=== PATIENT | male | born 1950 | race Caucasian/White ===

== ENCOUNTER → 2019-02-28 | Outpatient (REF) | payer MEDICARE ==
[2019-02-28 18:09] LABS: BASO % 0.6 % (0.0-1.0); EOS # 0.2 10^3/uL (0.0-0.5); EOS % 2.7 % (0.0-3.0); HEMATOCRIT 47.5 % (42.0-52.0); HEMOGLOBIN 15.7 g/dl (13.5-17.5); MEAN CORPUSCULAR HEMOGLOBIN 31.2 pg (27.0-33.0); MEAN CORPUSCULAR HGB CONC 33.1 g/dl (32.0-36.5); MEAN CORPUSCULAR VOLUME 94.4 fl (80.0-96.0); MONO # 0.8 10^3/uL (0.0-0.8); MONO % 11.4 % (0.0-5.0); NEUTROPHILS # 4.5 10^3/uL (1.5-8.5); NEUTROPHILS % 68.8 % (36.0-66.0); PLATELET COUNT, AUTOMATED 236 10^3/uL (150-450); RED BLOOD COUNT 5.03 10^6/uL (4.30-6.10); WHITE BLOOD COUNT 6.6 10^3/uL (4.0-10.0)
[2019-02-28 18:35] LABS: C REACTIVE PROTEIN QUANTITATIV < 0.30 MG/DL (0.00-0.30); RHEUMATOID FACTOR QUANT < 10.0 IU/ML (<15.0)
[2019-02-28 19:14] LABS: IMMUNOGLOBULIN E < 3.6 IU/ML (<100)
[2019-02-28 19:28] LABS: ERYTHROCYTE SEDIMENTATION RATE 1 mm/hr (0-20)
== END ==
LOC: M LABDRAW1 17:03
PROVIDERS: ATTEND Internal Medicine Pulmonary Disease
DX: J45.40 Moderate persistent asthma, uncomplicated (principal)

== ENCOUNTER 2019-07-23 06:26 | Day surgery (SDC) | payer MEDICARE ==
[~2019-07-23] VITALS: Ht 172.7 cm; Wt 105.3 kg
[~2019-07-23 06:26] MED LIST: ACID1TAB PO; ALBU83IN INH; ALFU10TA3 PO; AZEL1SPR3 INH; CALC600T5 PO; DUTA1CAP2 PO; DYMI137S; ELIQ5TAB PO; EQL50TAB2 PO; LANS15CA PO; LEVOTAB10 PO; LOSA100T8 PO; LR 1,000 ML IV ONE; NIAC500C PO; PRED10PA PO; RA M200C4 PO; RA M500C PO; RA T500C2 PO; SING5CHW23 PO; SYMB16INH INH; TOPR25TA PO; TRAV04OPD OP; TRUS1SOL OP; VITA-157 PO; VITA500C24 PO; VITAD1000T PO; VYTO10TA22 PO
[2019-07-23] MEDS ORDERED: fentaNYL 100 MCG/2 ML INJECTION (J3010) As Ordered ONE (06:57)
[2019-07-23] MEDS ORDERED: propofoL 200 MG/20 ML VIAL As Ordered ONE (06:58)
[2019-07-23] MEDS ORDERED: LIDOCAINE 2% 100MG/5ML SDV (FOR ANES.) As Ordered ONE (06:58)
[2019-07-23] MEDS ORDERED: ONDANSETRON 4MG/2ML VIAL As Ordered ONE (06:58)
[2019-07-23] MEDS ORDERED: ROCURONIUM BROMIDE 50 MG/5 ML VIAL As Ordered ONE (06:58)
[2019-07-23] MEDS ORDERED: dexameTHASONE 4 MG/ML 1ML VIAL (J1100 PER 1MG) As Ordered ONE (06:58)
[2019-07-23] MEDS ORDERED: MIDAZOLAM INJ 2MG/2ML VIAL (J2250 PER 1MG) As Ordered ONE ×2 (06:58→10:20)
[2019-07-23] MEDS ORDERED: LIDOCAINE 1% MDV 20ML VIAL As Ordered ONE (08:55)
[2019-07-23] MEDS ORDERED: LIDOCAINE VISCOUS 2% SOLN 15ML UDC As Ordered ONE (08:55)
[2019-07-23] MEDS ORDERED: EPINEPHrine 1MG/10ML SYRINGE 1.5IN As Ordered ONE (08:55)
[2019-07-23] MEDS ORDERED: CETACAINE SPRAY 5GM As Ordered ONE (08:55)
[2019-07-23] MEDS ORDERED: THROMBIN SOLN 5,000 UNITS VIAL As Ordered ONE (08:55)
[2019-07-23] MEDS ORDERED: ACETAMINOPHEN 1000MG 100ML IV BTL (OFIRMEV) (J0131 PER 10MG) As Ordered ONE (09:22)
[2019-07-23] MEDS ORDERED: SUGAMMADEX SODIUM 500 MG/5 ML VIAL (BRIDION) As Ordered ONE (09:22)
[2019-07-23] MEDS ORDERED: PHENYLephrine HCL 500 MCG/5 ML (100MCG/ML) SYRINGE (J2370) As Ordered ONE (09:34)
[2019-07-23] MEDS ORDERED: ePHEDrine SULFATE 25 MG/5 ML(5MG/ML) SYRINGE As Ordered ONE (09:34)
[2019-07-23] MEDS ORDERED: ALBUTEROL 6.7GM INHALER **FOR ANES. CART/OMNICELL ONLY As Ordered ONE (09:53)
[2019-07-23] MEDS ORDERED: KETAMINE HCL 200 MG/20 ML VIAL As Ordered ONE (10:19)
[2019-07-23] MEDS ORDERED: LR 1,000 ML IV SCH (11:00)
[2019-07-23] MEDS ORDERED: ONDANSETRON 4MG/2ML VIAL IV PRN ×2 (11:00)
[2019-07-23] MEDS ORDERED: NORCO, ANEXSIA 5/325MG TABLET (HYDROcodone/ACETAMINOPHEN) PO PRN (11:00)
[2019-07-23] MEDS: PERCOCET 5MG/325MG TAB PO PRN ×3 (11:22→20:15)
[2019-07-23] MEDS: fentaNYL 100 MCG/2 ML INJECTION (J3010) IV PRN ×4 (11:23→12:12)
[2019-07-23 11:49] LABS: BASO # 0.1 10^3/uL (0.0-0.2); BASO % 0.5 % (0.0-1.0); EOS # 0.2 10^3/uL (0.0-0.5); EOS % 1.8 % (0.0-3.0); HEMATOCRIT 43.5 % (42.0-52.0); HEMOGLOBIN 14.3 g/dl (13.5-17.5); LYMPH # 0.4 10^3/uL (1.5-5.0); LYMPH % 3.7 % (24.0-44.0); MEAN CORPUSCULAR HEMOGLOBIN 31.3 pg (27.0-33.0); MEAN CORPUSCULAR HGB CONC 32.9 g/dl (32.0-36.5); MEAN CORPUSCULAR VOLUME 95.2 fl (80.0-96.0); MONO # 0.3 10^3/uL (0.0-0.8); MONO % 2.9 % (0.0-5.0); NEUTROPHILS % 90.1 % (36.0-66.0); RED BLOOD COUNT 4.57 10^6/uL (4.30-6.10)
[2019-07-23] MEDS ORDERED: PERCOCET 5MG/325MG TAB PO ONE (12:15)
[2019-07-23 12:32] LABS: BLOOD UREA NITROGEN 17 MG/DL (7-18); CALCIUM LEVEL 8.6 MG/DL (8.8-10.2); CARBON DIOXIDE LEVEL 26 MEQ/L (21-32); CHLORIDE LEVEL 107 MEQ/L (98-107); CREATININE FOR GFR 1.14 MG/DL (0.70-1.30); GLOMERULAR FILTRATION RATE > 60.0 (>42); GLUCOSE, FASTING 113 MG/DL (70-100); POTASSIUM SERUM 4.6 MEQ/L (3.5-5.1); SODIUM LEVEL 140 MEQ/L (136-145)
[2019-07-23 13:00] VITALS: BP 168/83
[2019-07-23 13:30] VITALS: BP 160/80
[2019-07-23] MEDS: LEVALBUTEROL 1.25 MG/0.5 ML CONCENTRATE NEB NEB SCH ×2 (13:43→20:00)
[2019-07-23 14:00] VITALS: BP 173/87
[2019-07-23 14:07] LABS: ABG BASE EXCESS 0.5 (-2.0-2.0); ABG HCO3 26.2 MEQ/L (22.0-26.0); ABG O2 SATURATION 91.4 % (95.0-99.0); ABG PARTIAL PRESSURE CO2 45.7 mmHg (35.0-45.0); ABG PARTIAL PRESSURE O2 63.1 mmHg (75.0-100.0); ABG STANDARD HCO3 24.8 MEQ/L (22.0-26.0); ABG TOTAL CO2 27.6 MEQ/L (23.0-31.0); ABG pH (ARTERIAL) 7.376 UNITS (7.350-7.450)
--- NOTE | 2019-07-23 14:24 | REP ---
REASON: Status post chest tube insertion. The examination is dated 07/23/2019 at 11:10 a.m. and it is compared to 07/23/2019 at 10:36 a.m. A right-sided chest tube is again noted and appears unchanged on this limited portable chest. There is no significant change in the appearance of the lung souza. A small right-sided pneumothorax is noted but significantly better imaged on this exam compared to the prior exam. There are no other significant changes. Electronically Signed by Francisco Javier Gonzalez DO 07/23/2019 02:31 P
[2019-07-23] MEDS ORDERED: SLF 3 ML SYR IV PRN (14:30)
--- NOTE | 2019-07-23 14:31 | REP ---
The examination that I am reading now is 07/23/2019 at 10:36 a.m. is compared to 07/23/2019 10:20 a.m. Since the prior exam, a right-sided thoracotomy tube has been placed. The tip is in the apical region. The pneumothorax seen previously has been reduced and only a small pneumothorax is identifiable. The technique utilized in obtaining the radiograph has magnified the cardiac silhouette and accentuated the interstitial markings. Only the right lung is included on the radiograph. IMPRESSION: Status post chest tube placement with a small right pneumothorax. Electronically Signed by Francisco Javier Gonzalez DO 07/23/2019 02:35 P
--- NOTE | 2019-07-23 14:34 | REP ---
REASON: Post procedural AP supine portable radiograph. COMPARISON: The only prior for comparison is 11/18/2004. The examination being interpreted now is dated 07/23/2019 at 10:20 a.m. The technique utilized in obtaining the radiograph has magnified the cardiac silhouette and accentuated the interstitial markings. Only the right lung field was included on this portable radiograph. There is a moderate to large right-sided pneumothorax. Since not all of the chest was included on the radiograph, I cannot state whether or not this pneumothorax is under tension. IMPRESSION: Right-sided pneumothorax. Electronically Signed by Francisco Javier Gonzalez DO 07/23/2019 02:36 P
[2019-07-23 15:30] VITALS: BP 189/86
[2019-07-23 15:44] LABS: APPEARANCE CLEAR (CLEAR); COLOR COLORLESS (COLORLESS); SOURCE RIGHT LOWER LOBE
[2019-07-23 16:30] VITALS: BP_SYST 175; BP_SYST 189; BP_DIAS 80; BP_DIAS 86
[2019-07-23] MEDS ORDERED: **hydrALAZINE HCL** 25 MG TAB PO ONE (18:15)
[2019-07-23 20:00] VITALS: BP 146/86
[2019-07-23] MEDS: guaiFENesin ER 600 MG TAB PO SCH (20:14)
[2019-07-23] MEDS: SIMVASTATIN 20 MG TAB PO SCH (20:14)
[2019-07-23] MEDS: LATANOPROST 0.005% OPHTH SOLN 2.5 ML OU SCH (20:14)
[2019-07-23] MEDS: DORZOLAMIDE 2% OPHTH SOLN 10 ML BTL OU SCH (20:14)
[2019-07-23] MEDS: SYMBICORT 160/4.5MCG INHALER 6GM INH SCH (20:47)
[2019-07-23] MEDS: SLF 3 ML SYR IV SCH (21:39)
[2019-07-24] VITALS: BP 147/90
[2019-07-24] MEDS: LEVALBUTEROL 1.25 MG/0.5 ML CONCENTRATE NEB NEB SCH ×4 (01:02→18:24)
[2019-07-24] MEDS: PERCOCET 5MG/325MG TAB PO PRN ×4 (01:18→11:49)
[2019-07-24 04:00] VITALS: BP 169/85
[2019-07-24 04:44] LABS: BLOOD UREA NITROGEN 21 MG/DL (7-18); CALCIUM LEVEL 8.4 MG/DL (8.8-10.2); CARBON DIOXIDE LEVEL 28 MEQ/L (21-32); CHLORIDE LEVEL 107 MEQ/L (98-107); GLOMERULAR FILTRATION RATE > 60.0 (>42); GLUCOSE, FASTING 120 MG/DL (70-100); POTASSIUM SERUM 4.3 MEQ/L (3.5-5.1); SODIUM LEVEL 144 MEQ/L (136-145)
[2019-07-24 05:18] LABS: BASO % 0.2 % (0.0-1.0); EOS % 0.3 % (0.0-3.0); HEMATOCRIT 40.8 % (42.0-52.0); HEMOGLOBIN 13.4 g/dl (13.5-17.5); LYMPH # 0.7 10^3/uL (1.5-5.0); LYMPH % 5.6 % (24.0-44.0); MEAN CORPUSCULAR HGB CONC 32.8 g/dl (32.0-36.5); MEAN CORPUSCULAR VOLUME 94.4 fl (80.0-96.0); MONO # 0.7 10^3/uL (0.0-0.8); MONO % 5.7 % (0.0-5.0); NEUTROPHILS # 10.1 10^3/uL (1.5-8.5); NEUTROPHILS % 87.2 % (36.0-66.0); RED BLOOD COUNT 4.32 10^6/uL (4.30-6.10); WHITE BLOOD COUNT 11.6 10^3/uL (4.0-10.0)
[2019-07-24] MEDS: SLF 3 ML SYR IV SCH ×3 (05:40→21:03)
[2019-07-24 08:00] VITALS: BP 117/59
[2019-07-24] MEDS: SYMBICORT 160/4.5MCG INHALER 6GM INH SCH ×2 (08:21→18:24)
--- NOTE | 2019-07-24 08:26 | REP ---
Chest x-ray: Two views. History: Chest tube. Comparison study: July 23, 2019. Findings: A right pleural drainage catheter is seen in place along the right lateral chest wall. The right-sided pneumothorax is no longer visible. Pleural angles are sharp. Cardiomegaly is again observed. The aorta is calcific and tortuous. Pulmonary vasculature is cephalized. Interstitial markings are seen to be increase in the perihilar regions bilaterally. These are most pronounced in the right upper lobe distribution. Electronically Signed by Koby Almeida MD 07/24/2019 08:17 A
[2019-07-24] MEDS: MONTELUKAST 10 MG TAB PO SCH (08:45)
[2019-07-24] MEDS: NIACIN SR (NIASPAN) 500 MG TAB PO SCH (08:45)
[2019-07-24] MEDS: guaiFENesin ER 600 MG TAB PO SCH ×2 (08:45→21:03)
[2019-07-24] MEDS: DUTASTERIDE 0.5 MG CAP (AVODART) PO SCH (08:45)
[2019-07-24] MEDS: APIXABAN 5 MG TAB (ELIQUIS) PO SCH ×2 (08:46→21:03)
[2019-07-24] MEDS: LACTOBACILLUS ACIDOPHILUS CAP (BACID) PO SCH (08:46)
[2019-07-24] MEDS: PANTOPRAZOLE 40MG TAB (PROTONIX) PO SCH (08:46)
[2019-07-24] MEDS: LOSARTAN 50MG TABLET PO SCH (08:46)
[2019-07-24] MEDS: hydroCHLOROthiazide 12.5 MG CAPSULE PO SCH (08:46)
[2019-07-24] MEDS: predniSONE 10 MG TAB PO SCH (08:46)
[2019-07-24] MEDS: ASCORBIC ACID 500 MG TAB PO SCH (08:46)
[2019-07-24] MEDS: VITAMIN D 1,000 INTERNATIONAL UNITS TABLET PO SCH (08:46)
[2019-07-24] MEDS: DORZOLAMIDE 2% OPHTH SOLN 10 ML BTL OU SCH ×2 (08:47→21:03)
[2019-07-24] MEDS: METOPROLOL SUCC *XL* 25MG TAB (TopROL *XL*) PO SCH (08:47)
[2019-07-24] MEDS: VITAMIN E 400 INTERNATIONAL UNITS CAP PO SCH (08:47)
[2019-07-24 12:00] VITALS: BP 141/66
--- NOTE | 2019-07-24 12:08 | REP ---
CHEST X-RAY, TWO VIEWS: 11:27 a.m. HISTORY: Evaluate pneumothorax. Comparison study is from 08:05 a.m. on this same date. FINDINGS: The right pleural drainage catheter remains in place. There is no visible pneumothorax. Increased parenchymal markings are seen in the right upper lobe and to a lesser extent left upper lobe as before. Pleural angles are sharp. Heart is enlarged as before. IMPRESSION: Pneumothorax not visible. Right pleural drainage catheter in place. Electronically Signed by Koby Almeida MD 07/24/2019 12:36 P
--- NOTE | 2019-07-24 15:15 | REP ---
CHEST, TWO VIEWS: Two views of the chest are performed. Comparison is made with prior exams of the same day. Right chest catheter is again noted, unchanged. There is no evidence of a pneumothorax. The lungs are unchanged in appearance as are the heart and mediastinum. IMPRESSION: Once again, there is no evidence of right-sided pneumothorax with right pleural drainage catheter in place. Electronically Signed by Kam Murray MD 07/24/2019 03:42 P
[2019-07-24 16:00] VITALS: BP 136/72
--- NOTE | 2019-07-24 16:52 | IPN ---
DATE: 07/24/2019 The patient was seen and examined this morning during bedside rounds. The patient's a.m. chest x-ray did not show any evidence of pneumothorax and he did not have any air leak noted on his chest tube while on wall suction. He was therefore placed to water seal with a plan for repeat chest x-ray later on in the morning. He denies any significant chest pain currently in the chest tube site. He did get a dose of Percocet yesterday with improvement in his pain. He did not require any doses this morning. He denies any significant shortness of breath. He does feel his cough has improved, although he does continue to have the chronic hoarseness of his throat. He does feel he has less mucous and rattling in his chest that he notices. He is on Mucinex as well as levalbuterol and Symbicort maintenance. He did not have any fevers overnight. PHYSICAL EXAM: Vitals: Temperature 97.1, pulse 74, respiration 18, blood pressure 169.85,oxygen saturation 93% on 2 liters nasal cannula. In 2 liters, out undocumented. General: The patient is a pleasant male, is lying in bed in no acute respiratory distress. He is awake, alert, and oriented. He is not using accessory muscle respiration. HEENT: Normocephalic, atraumatic. Pupils react to light bilaterally. There are moist mucous membranes noted. Mallampati IV. Neck: Supple. No palpable adenopathy. No crepitus palpated in the chest. Cardiovascular: Regular rate and rhythm. Normal S1, S2. No murmurs appreciated. Respiratory: There are some mild crackles at the bases bilaterally but no significant wheezing or rhonchi noted. Abdomen: Soft, nontender to palpation. Lower extremities: There is no significant lower extremity edema noted bilaterally. LABS: WBC 11.6, hemoglobin 13.4, platelets are clumped. Chemistry: Sodium 144, potassium 4.3, chloride is 102, bicarbonate 28, BUN 21, creatinine is 1.10, glucose 120. Chest x-ray this morning shows no residual pneumothorax. The right-sided chest tube is in place. There is increased interstitial markings in the perihilar region and more in the right upper lobe. There is some mild pulmonary vascular congestion and some chronic fibrotic changes in the lungs ASSESSMENT/PLAN: Mr. Sumner is a 69-year-old male with a past history of hypertension, hyperlipidemia, atrial fibrillation on anticoagulation, previous history of obstructive sleep apnea (LEMUEL) not on continuous positive airway pressure (CPAP), and asthma, who had an outpatient bronchoscopy performed for evaluation of interstitial lung disease. The patient had an outside CT which had shown evidence of subpleural reticulation and pulmonary fibrosis with a slight basilar predominance. There was no clear honeycombing noted, although there was some evidence of bronchiectasis. The patient did have extensive serologic testing done which was negative. He does have a history of birds in the home and there was some suspicion of possible hypersensitivity pneumonitis. He did have empiric treatment with steroids given his persistent cough, and with the steroids he did have improvement in his shortness of breath and chest heaviness but his cough persisted. He was tapered off of the prednisone, and we discussed bronchoscopy with transbronchial biopsy for further evaluation of his interstitial lung disease. The patient had his bronchoscopy performed yesterday which on airway exam did show evidence of copious thick white secretions in his lungs bilaterally as well as the mucosa showing some pitting and webbing with somewhat friable tissue and some white delgado submucosal nodules. The patient had multiple transbronchial biopsies performed in the right lung as well as an endobronchial biopsy performed in the left upper lobe. The patient had complication of a pneumothorax and, as he was on positive pressure ventilation, he did have a significantly enlarged pneumothorax postprocedure. He required emergent placement of a chest tube with re-expansion of his lung noted. The patient was admitted to progressive care unit (PCU) for monitoring of his post procedure pneumothorax. - The patient's chest x-ray this morning shows as lung has reinflated to the pleural surface, and he does not have any evidence of an air leak while on wall suction. He was therefore placed to water seal with plan to repeat a chest x- ray in a few hours. If his chest x-ray in a few hours does not show evidence of pneumothorax, his chest tube will be clamped and a repeat chest x-ray placed again in a few hours. If he develops any signs of chest pain or shortness of breath, then his chest tube will be reopened. - If patient's repeat chest x-ray after clamping chest tube does not show reaccumulation of the pneumothorax, then he will be kept clamped overnight with a repeat chest x-ray in the morning. If that x-ray still does not show evidence of pneumothorax, then his chest tube can be removed tomorrow morning. - The patient will be continued with his home medications. - We will continue with Symbicort as well as levalbuterol nebulizers and Mucinex. He can continue with incentive spirometry and Acapella device but will hold the Mucomyst nebulizers for now. - The patient did discover that he was using his Symbicort inhaler wrong apparently for many years. He was given an AeroChamber device to help with use of his inhaler. - We did discuss that his bronchoscopy results will take time for the results to be returned. He did also have [employer] testing for IPF as well. - The patient does have a followup with pulmonary scheduled next week. Deep venous thrombosis (DVT) prophylaxis. Issa. CODE STATUS: FULL CODE. MTDD
--- NOTE | 2019-07-24 17:22 | HPE ---
DATE OF ADMISSION: 07/23/2019 CHIEF COMPLAINT: Postprocedure pneumothorax. HISTORY OF PRESENT ILLNESS: Mr. Sumner is a 69-year-old male with a past medical history of hypertension, hyperlipidemia, asthma, arthritis, follicular lymphoma, status post R-CHOP with maintenance Rituxan who had an outpatient bronchoscopy performed for evaluation of interstitial lung disease and for his chronic cough. The patient had previously been seen in our pulmonary office with complaints of a persistent cough since the end of last year. He had previously been tried with medications for upper airway cough syndrome with nasal sprays as well as referral at the ENT for further evaluation as he did report some history of symptoms of hoarseness as well as increased nasal and sinus congestion. During his ENT evaluation, he had a flexible fiberoptic scope done which showed evidence of laryngeal reflux and some irritation and dryness. He was also on proton pump inhibitor (PPI) twice a day for laryngeal reflux associated cough but continued to have significant cough as well as sensation of mucus in his throat, which he states can be thick and causes him to choke at times. He also occasionally will feel fluttering sensation in his chest from the mucus and was having difficulty expectorating it. He was started on Mucinex as well as on pulmonary toilet with Mucomyst and albuterol nebulizer, and Acapella device. He was also given hypertonic saline nebulizers as well to help for pulmonary toilet. The patient had also been treated empirically with prednisone as his CT had shown some evidence of some pleural reticulation and peripheral fibrosis bilaterally as well as some associated traction bronchiectasis and possible mild honeycombing. The patient also had a few scattered granulomas and some subcentimeter noncalcified nodules noted as well. The patient was started on empiric prednisone for his cough, for possible of inflammatory tight interstitial lung disease. With the prednisone he did have some improvement in his shortness of breath and chest heaviness, however, his cough did not improve and he had been tapered down on the prednisone. There was some thought for a possible hypersensitivity pneumonitis as he does have a cockatiel at home as well as a parakeet that he more recently had acquired. Given concern for an interstitial lung disease, the patient was consented for a bronchoscopy with transbronchial biopsies. His CT was not entirely consistent with an usual interstitial pneumonia (UIP) pattern, however, early idiopathic pulmonary fibrosis (IPF) may be possible as he did not have significant honeycombing yet and there was a suggestion of basilar predominant. We also performed in video testing during his bronchoscopy for evaluation of IPF. During the procedure, the patient was noted to have very thick, copious white secretions in his airway. His mucosa also appeared somewhat irritated and easily friable and he did have some submucosal nodules noted. During his bronchoscopy, the patient was on mechanical ventilation and during the fluoroscopy guided transbronchial biopsies he was noted to develop a small right apical pneumothorax. The procedure was halted at that time. The patient was extubated in the operating room (OR) and he had a stat portable chest x-ray performed which showed enlargement of his pneumothorax as he was on positive pressure ventilation. The patient therefore had an emergent chest tube placed in the OR with re-expansion of his lung noted on repeat chest x-ray. The patient was transferred to postanesthesia care unit (PACU) for recovery and was admitted to progressive care unit (PCU) for observation. With the chest tube in place on water-seal he was noted to have bubbling and an air leak. His chest tube was placed to wall suction in the recovery area. PAST MEDICAL/SURGICAL HISTORY: Asthma. Hypertension. Hyperlipidemia. Arthritis. BPH. Diverticulitis. Atrial fibrillation status post ablation on anticoagulation Ganglion cyst surgery in the right breast. Rotator cuff surgery on the right. Torn meniscus on right and left. Partial knee replacement on right. Back surgery for degenerative disc disease. Left shoulder replacement. History of perforated bowel. Follicular non-Hodgkin lymphoma status post R-CHOP and maintenance Rituxan. Previous history of obstructive sleep apnea (LEMUEL) noncompliant with continuous positive airway pressure (CPAP). SOCIAL HISTORY: Denies history of tobacco use. History of secondhand smoker soldier. No history of alcohol use or illicit drug use. The patient has two birds at home a cockatiel, which he has had for many years, and had acquired a parakeet last year. The cockatiel is frequently roaming around the house and the birds are otherwise kept in a corner of his living room. He does also have a hobby of woodworking, which he performs in his basement. The patient had previously worked in [employer] and [employer] and he does have a history of exposure to asbestos, coal, tar, and dust as well as silicon-beryllium. FAMILY HISTORY: Father with history of lung cancer. Brother with history of stroke and another brother with history of heart problems. No family history of pulmonary fibrosis or sarcoidosis. HOME MEDICATIONS: - albuterol three times a day with Mucomyst nebulized - Mucinex as needed - Symbicort 2 puffs twice a day - Xyzal - montelukast - Dymista nasal spray as needed - lansoprazole - Avodart - alfuzosin - Travatan drops - dorzolamide drops - Vytorin - metoprolol 25 mg daily - losartan/hydrochlorothiazide daily - Eliquis 5 mg twice a day - vitamin C - Super B Complex - vitamin D - calcium - vitamin E - niacin - magnesium - tumeric - Align - milk thistle ALLERGIES: DUST, MITES, and SMOKE. REVIEW OF SYSTEMS: Denies any fevers or chills. No night sweats. The patient does have some hoarseness but he does feel his breathing has improved and his cough has also improved post bronchoscopy. Denies any chest pain. No increased lower extremity edema. He does have a history of heartburn and hiatal hernia. The patient is complaining of some stiffness and soreness in his arms likely secondary to placement of his arms during the procedure. He does have history of arthritis in his knees, shoulder and his hands. Does not use a cane or walker with ambulation. PHYSICAL EXAMINATION: Temperature 97.2, pulse 76, respirations 20, blood pressure 154/88, oxygen saturation 93% on 2 liters nasal cannula. General: The patient is awake, alert and oriented. Is lying in bed in no acute respiratory distress. Is not using accessory muscle respiration. HEENT: Is normocephalic, atraumatic. Mucous membranes are moist. Mallampati class IV. Neck is supple, trachea is midline. No jugular venous distention (JVD) noted. No cervical adenopathy palpated. Cardiac: Regular rate and rhythm. Normal S1, S2 with no appreciable murmurs. Pulmonary: Expiratory phase is normal. There is mild crackles in the bases. There is no significant wheezing or rhonchi. Abdomen: Is obese, soft and nontender. Extremities: There is no significant lower extremity edema. LABORATORY DATA: WBC 10.0, hemoglobin 14.3, platelets are clumped. Chemistry: Sodium is 140, potassium 4.6, chloride is 107, bicarbonate 26 BUN 17, creatinine 1.14, glucose 113. ABG: pH 7.376, pCO2 of 45.7, pO2 of 63.1. Chest x-ray after insertion of chest tube showed small residual right apical pneumothorax. There are some increased interstitial markings in the perihilar regions bilaterally. There are some chronic fibrotic changes. ASSESSMENT/PLAN: Mr. Sumner is a 69-year-old male with a past medical history of hypertension, hyperlipidemia, asthma, atrial fibrillation on anticoagulation, follicular lymphoma status post R-CHOP, previous history of obstructive sleep apnea not compliant with CPAP who presented for an outpatient bronchoscopy as workup for his chronic cough and interstitial lung disease. The patient had multiple transbronchial biopsies performed in the right lung as well as endobronchial biopsy performed in the left lung. During bronchoscopy, he was noted on fluoroscopy to have evidence of small right apical pneumothorax. The procedure was halted at that time. The patient was on positive pressure ventilation during the procedure and an emergent portable chest x-ray performed while the patient was in the OR on the right lung. He was noted to have enlarging pneumothorax and so an emergent chest tube was placed in the OR. With chest tube placement he had re-expansion of his lung. The patient was transferred to the PACU for monitoring and then admitted to PCU for his post procedural pneumothorax. He was placed on wall suction at 20 cm of water. He did have an occasional air leak noted still. - Will continue the patient on wall suction overnight. Will repeat a chest x- ray in the morning and if his pneumothorax appears improved will place the patient on water-seal for a few hours and repeat a chest x-ray. - Will restart his home medications including his medications for pulmonary toilet and his inhaler therapy. - The patient was on prednisone for a component of possible inflammatory interstitial lung disease such as hypersensitivity pneumonitis. He had been weaned off the prednisone. He will be given 10 mg for a short course and then discontinued and followup with outpatient. - The patient will also get pain control as needed for his chest tube. Deep venous thrombosis (DVT) prophylaxis. Restart his Eliquis this evening. CODE STATUS: FULL CODE. MTDD
--- NOTE | 2019-07-24 17:29 | RO ---
DATE OF PROCEDURE: 07/23/2019 INDICATION: Post procedural pneumothorax. PREPROCEDURE DIAGNOSIS: Pneumothorax on right POSTPROCEDURE DIAGNOSIS: Pneumothorax on right CONSENT: Due to the emergent nature of the procedure the consent was implied. PROCEDURE NOTE: A time-out was performed prior to the procedure. Anesthesia was present as procedure was performed in the operating room (OR) post bronchoscopy. The patient was given medications by anesthesia for sedation for chest tube placement. The patient's right upper chest region in the second midclavicular intercostal space was prepped using chlorhexidine and draped in the usual sterile fashion with the fenestrated drape. 1% lidocaine was used to anesthetize the skin surface down to the rim and along the proposed insertion path. An 18 gauge needle with syringe was attached and inserted into the pleural space with aspiration of air to verify placement. The syringe was removed and a guidewire was advanced through the needle into the pleural space. The needle was withdrawn. A small incision was made through the skin with a scalpel. A dilator was exchanged over the guidewire into the pleural space. After appropriate dilation a 14-Turkmen Arrow pigtail chest drain was inserted into the pleural space. The guidewire was removed and the drain was immediately connected to a Pleur-evac. Adequate placement was confirmed by air leak and tidaling. The tube was sutured in place and an occlusive dressing was applied. The patient tolerated the procedure well. Estimated blood loss was less than 1 mL. A postprocedure chest x-ray was performed in the OR, which showed placement of the chest tube with re-expansion of the lung noted and a small residual right apical pneumothorax. [facility]
[2019-07-24 20:00] VITALS: BP 140/82
[2019-07-24] MEDS: LATANOPROST 0.005% OPHTH SOLN 2.5 ML OU SCH (21:03)
[2019-07-24] MEDS: SIMVASTATIN 20 MG TAB PO SCH (21:03)
[2019-07-25] VITALS: BP 149/80
[2019-07-25] MEDS: LEVALBUTEROL 1.25 MG/0.5 ML CONCENTRATE NEB NEB SCH ×2 (01:42→07:23)
[2019-07-25 04:00] VITALS: BP 160/80
[2019-07-25 05:26] LABS: BASO # 0.1 10^3/uL (0.0-0.2); BASO % 0.4 % (0.0-1.0); EOS # 0.2 10^3/uL (0.0-0.5); EOS % 2.1 % (0.0-3.0); HEMATOCRIT 39.6 % (42.0-52.0); HEMOGLOBIN 13.1 g/dl (13.5-17.5); LYMPH # 1.1 10^3/uL (1.5-5.0); LYMPH % 9.4 % (24.0-44.0); MEAN CORPUSCULAR HEMOGLOBIN 31.2 pg (27.0-33.0); MEAN CORPUSCULAR HGB CONC 33.1 g/dl (32.0-36.5); MEAN CORPUSCULAR VOLUME 94.3 fl (80.0-96.0); NEUTROPHILS # 8.8 10^3/uL (1.5-8.5); NEUTROPHILS % 78.1 % (36.0-66.0); WHITE BLOOD COUNT 11.2 10^3/uL (4.0-10.0)
[2019-07-25 05:44] LABS: BLOOD UREA NITROGEN 15 MG/DL (7-18); CALCIUM LEVEL 8.4 MG/DL (8.8-10.2); CARBON DIOXIDE LEVEL 28 MEQ/L (21-32); CHLORIDE LEVEL 105 MEQ/L (98-107); CREATININE FOR GFR 0.88 MG/DL (0.70-1.30); GLOMERULAR FILTRATION RATE > 60.0 (>42); GLUCOSE, FASTING 93 MG/DL (70-100); POTASSIUM SERUM 3.6 MEQ/L (3.5-5.1); SODIUM LEVEL 140 MEQ/L (136-145)
[2019-07-25] MEDS: SLF 3 ML SYR IV SCH (05:54)
[2019-07-25] MEDS: SYMBICORT 160/4.5MCG INHALER 6GM INH SCH (07:23)
[2019-07-25 08:00] VITALS: BP 164/82
--- NOTE | 2019-07-25 08:36 | REP ---
Chest x-ray: Two views. History: Chest tube. Comparison chest x-ray: July 24, 2019. Findings: A right pleural drainage catheter remains in place laterally. There is an infiltrate in the right lung perihilar region adjacent to the chest tube. On lateral radiograph, the there is a collection of linear air densities over the retrosternal clear space. This may be mediastinal air. Increased markings are again noted and perihilar region on the left. No new infiltrate is seen. There is no visible pneumothorax on the frontal radiograph. Electronically Signed by Koby Almeida MD 07/25/2019 08:28 A
[2019-07-25 09:00] VITALS: BP 164/82
[2019-07-25] MEDS: hydroCHLOROthiazide 12.5 MG CAPSULE PO SCH (09:00)
[2019-07-25] MEDS: MONTELUKAST 10 MG TAB PO SCH (09:00)
[2019-07-25] MEDS: METOPROLOL SUCC *XL* 25MG TAB (TopROL *XL*) PO SCH (09:00)
[2019-07-25] MEDS: predniSONE 10 MG TAB PO SCH (09:00)
[2019-07-25] MEDS: PANTOPRAZOLE 40MG TAB (PROTONIX) PO SCH (09:00)
[2019-07-25] MEDS: APIXABAN 5 MG TAB (ELIQUIS) PO SCH (09:00)
[2019-07-25] MEDS: guaiFENesin ER 600 MG TAB PO SCH (09:00)
[2019-07-25] MEDS: LACTOBACILLUS ACIDOPHILUS CAP (BACID) PO SCH (09:01)
[2019-07-25] MEDS: VITAMIN D 1,000 INTERNATIONAL UNITS TABLET PO SCH (09:01)
[2019-07-25] MEDS: VITAMIN E 400 INTERNATIONAL UNITS CAP PO SCH (09:01)
[2019-07-25] MEDS: LOSARTAN 50MG TABLET PO SCH (09:01)
[2019-07-25] MEDS: DUTASTERIDE 0.5 MG CAP (AVODART) PO SCH (09:01)
[2019-07-25] MEDS: NIACIN SR (NIASPAN) 500 MG TAB PO SCH (09:01)
[2019-07-25] MEDS: ASCORBIC ACID 500 MG TAB PO SCH (09:01)
[2019-07-25] MEDS: DORZOLAMIDE 2% OPHTH SOLN 10 ML BTL OU SCH (09:02)
--- NOTE | 2019-07-25 12:11 | DS.PDOC ---
Discharge Summary General Date of Admission 07/23/19 Date of Discharge 07/25/19 Attending Physician: MERY COOPER MD Discharge Summary PROCEDURES PERFORMED DURING STAY: Outpatient Bronchoscopy with transbronchial biopsies and BAL. Right sided chest tube placement ADMITTING DIAGNOSES: 1. Post procedural pneumothorax 2. Interstitial lung disease 3. Chronic cough DISCHARGE DIAGNOSES: 1. Post procedural pneumothorax 2. Interstitial lung disease 3. Chronic cough COMPLICATIONS/CHIEF COMPLAINT: Post procedural pneumothorax on right side HISTORY OF PRESENT ILLNESS: Mr. Sumner is a 69-year-old male with a past medical history of hypertension, hyperlipidemia, asthma, arthritis, follicular lymphoma, status post R-CHOP with maintenance Rituxan who had an outpatient bronchoscopy performed for evaluation of interstitial lung disease and for his chronic cough. The patient had previously been seen in our pulmonary office with complaints of a persistent cough since the end of last year. He had previously been tried with medications for upper airway cough syndrome with nasal sprays as well as referral at the ENT for further evaluation as he did report some history of symptoms of hoarseness as well as increased nasal and sinus congestion. During his ENT evaluation, he had a flexible fiberoptic scope done which showed evidence of laryngeal reflux and some irritation and dryness. He was also on proton pump inhibitor (PPI) twice a day for laryngeal reflux associated cough but continued to have significant cough as well as sensation of mucus in his throat, which he states can be thick and causes him to choke at times. He also occasionally will feel fluttering sensation in his chest from the mucus and was having difficulty expectorating it. He was started on Mucinex as well as on pulmonary toilet with Mucomyst and albuterol nebulizer, and Acapella device. He was also given hypertonic saline nebulizers as well to help for pulmonary toilet. The patient had also been treated empirically with prednisone as his CT had shown some evidence of some subpleural reticulation and peripheral fibrosis bilaterally as well as some associated traction bronchiectasis and possible mild honeycombing. The patient also had a few scattered granulomas and some subcentimeter noncalcified nodules noted as well. The patient was started on empiric prednisone for his cough, for possible of inflammatory type interstitial lung disease. With the prednisone he did have some improvement in his shortness of breath and chest heaviness, however, his cough did not improve and he had been tapered down on the prednisone. There was some thought for a possible hypersensitivity pneumonitis as he does have a cockatiel at home as well as a parakeet that he more recently had acquired. Given concern for an interstitial lung disease, the patient was consented for a bronchoscopy with transbronchial biopsies. His CT was not entirely consistent with an usual interstitial pneumonia (UIP) pattern, however, early idiopathic pulmonary fibrosis (IPF) may be possible as he did not have significant honeycombing yet and there was a suggestion of basilar predominant. We also performed Envisia testing during his bronchoscopy for evaluation of IPF. HOSPITAL COURSE: During the bronchoscopy the patient was noted to have very thick, copious white secretions in his airway. His mucosa also appeared somewhat irritated and easily friable and he did have some submucosal nodules noted. During his bronchoscopy, the patient was on mechanical ventilation and during the fluoroscopy guided transbronchial biopsies he was noted to develop a small right apical pneumothorax. The procedure was halted at that time. The patient was extubated in the operating room (OR) and he had a stat portable chest x-ray performed which showed enlargement of his pneumothorax as he was on positive pressure ventilation. The patient therefore had an emergent chest tube placed in the OR with re-expansion of his lung noted on repeat chest x-ray. The patient was transferred to postanesthesia care unit (PACU) for recovery and was admitted to progressive care unit (PCU) for observation. With the chest tube in place on water-seal he was noted to have bubbling and an air leak. His chest tube was placed to wall suction in the recovery area and he was kept on wall suction overnight. The next day patient was not noted to have an airleak and he was placed on water seal with a repeat CXR showing no pneumothorax on the right. His chest tube was clamped and another repeat CXR was done which did not show pneumothorax. He has remained chest pain free with no SOB. Patient's chest tube was kept clamped since yesterday afternoon and overnight. Repeat CXR this morning showed no pneumothorax, possible mild pneumomediastinum. He denies chest pain or SOB, has chronic cough and some discomfort when coughing only. Chest tube was removed and an occlusive dressing placed. DISCHARGE MEDICATIONS: Please see below. ALLERGIES: Please see below. PHYSICAL EXAMINATION ON DISCHARGE: VITAL SIGNS: Please see below. General: The patient is a pleasant male, is lying in bed in no acute respiratory distress. He is awake, alert, and oriented. He is not using accessory muscle respiration. HEENT: Normocephalic, atraumatic. Pupils react to light bilaterally. There are moist mucous membranes noted. Mallampati IV. Neck: Supple. No palpable adenopathy. No crepitus palpated in the chest. Cardiovascular: Regular rate and rhythm. Normal S1, S2. No murmurs appreciated. Respiratory: Occasional rhonchi and squeaks, crackles at bases bilaterally Abdomen: Soft, nontender to palpation. Lower extremities: There is no significant lower extremity edema noted bilaterally. LABORATORY DATA: Please see below. IMAGING: CXR 07/25/19 A right pleural drainage catheter remains in place laterally. There is increased interstitial markings in perihilar regions. Some fibrotic changes. On lateral radiograph, the there is a collection of linear air densities over the retrosternal clear space. This may be mediastinal air. No new infiltrate is seen. There is no visible pneumothorax on the frontal radiograph. PROGNOSIS: Good ACTIVITY: As tolerated DIET: Low sodium diet DISPOSITION: Home DISCHARGE INSTRUCTIONS: 1. Repeat CXR in tomorrow at [facility]. 2. Follow-up with pulmonary as scheduled. 3. Remove dressing after 48hrs. 4. Call if chest pain, increasing SOB, hemoptysis, fevers/chills or dyspnea ITEMS TO FOLLOWUP ON ON OUTPATIENT: 1. Repeat CXR and follow-up test results from bronchoscopy DISCHARGE CONDITION: Stable TIME SPENT ON DISCHARGE: Greater than 30 minutes. Vital Signs/I&Os Vital Signs Date Time Temp Pulse Resp B/P (MAP) Pulse Ox O2 Delivery O2 Flow Rate FiO2 07/25/19 09:00 82 164/82 07/25/19 08:00 97.9 18 94 Room Air 07/24/19 16:00 2.0 I&O- Last 24 Hours up to 6 AM 07/25/19 06:00 Intake Total 1080 ml Balance 1080 ml Laboratory Data Labs 24H Laboratory Tests 2 07/25/19 04:43: Immature Granulocyte % (Auto) 1.0, Neutrophils (%) (Auto) 78.1H, Lymphocytes (%) (Auto) 9.4L, Monocytes (%) (Auto) 9.0H, Eosinophils (%) (Auto) 2.1, Basophils (%) (Auto) 0.4, Neutrophils # (Auto) 8.8H, Lymphocytes # (Auto) 1.1L, Monocytes # (Auto) 1.0H, Eosinophils # (Auto) 0.2, Basophils # (Auto) 0.1, Nucleated Red Blood Cells % (auto) 0.0, Anion Gap 7L, Glomerular Filtration Rate > 60.0, Calcium Level 8.4L CBC/BMP Laboratory Tests 07/25/19 04:43 Microbiology Microbiology 07/23/19 Fungal Smear, Received Pending 07/23/19 Fungal Culture, Received Pending 07/23/19 Acid Fast Stain - Final, Resulted 07/23/19 Mycobacterial Culture, Resulted Pending 07/23/19 Gram Stain - Final, Complete 07/23/19 Bronchoalveolar Lavage Culture - Final, Complete Discharge Medications Scheduled Albuterol Sulf (Albuterol Sulfate) 2.5 Mg/3 Ml Vial.neb, 2.5 MG INH TID, (Reported) Alfuzosin HCl (Alfuzosin HCl ER) 10 Mg Tab.er.24h, 10 MG PO DAILY, (Reported) Apixaban (Eliquis) 5 Mg Tablet, 5 MG PO BID, (Reported) Ascorbic Acid (Vitamin C) 500 Mg Capsule, 500 MG PO DAILY, (Reported) Azelastine/Fluticasone (Dymista Nasal [place]) 23 Gm [place].pump, 1 SPR NA BID, (Reported) Budesonide/Formoterol (Symbicort 160-4.5 Mcg Inhaler) 6 Gm Hfa.aer.ad, 2 PUFF INH BID, (Reported) Calcium Carbonate (Calcium) 600 Mg Tablet, 1,200 MG PO DAILY, (Reported) Cholecalciferol (Vitamin D3) (Vitamin D3) 1,000 Unit Tablet, 1,000 UNITS PO DAILY, (Reported) Dorzolamide HCl (Trusopt) 2% 10ML Drops, 1 DROP OP BID, (Reported) Dutasteride (Dutasteride) 0.5 Mg Capsule, 0.5 MG PO DAILY, (Reported) Ezetimibe/Simvastatin (Vytorin 10-20 mg Tablet) 1 Each Tablet, 1 TAB PO DAILY, (Reported) Lactobacillus Acidophilus (Acidophilus) 1 Each Tablet, 1 TAB PO DAILY, (Reported) Lansoprazole (Lansoprazole) 15 Mg Capsule.dr, 30 MG PO DAILY, (Reported) Levocetirizine Dihydrochloride (Levocetirizine Dihydrochloride) 5 Mg Tablet, 5 MG PO DAILY, (Reported) Losartan/Hydrochlorothiazide (Losartan-Hctz 100-12.5 mg Tab) 1 Each Tablet, 1 TAB PO DAILY, (Reported) Magnesium Oxide (Magnesium) 500 Mg Capsule, 500 MG PO DAILY, (Reported) Metoprolol Succinate (Toprol Xl) 25 Mg Tab.er.24h, 25 MG PO DAILY, (Reported) Milk Thistle Seed Extract (Milk Thistle) 200 Mg Capsule, 200 MG PO BID, (Reported) Montelukast Sodium (Singulair) 5 Mg Tab.chew, 10 MG PO DAILY, (Reported) Niacin (Niacin) 500 Mg Capsule.er, 500 MG PO DAILY, (Reported) Travoprost (Travatan Z) 0.004% 2.5ML Drops, 1 DROP OP QPM, (Reported) Turmeric Root Extract (Turmeric) 500 Mg Capsule, 500 MG PO DAILY, (Reported) Vitamin B Complex (Vitamin B Complex) 1 Each Tablet, 1 TAB PO DAILY, (Reported) Vitamin E (Dl,Tocopheryl Acet) (Vitamin E) 400 Unit Capsule, 400 UNIT PO DAILY, (Reported) Allergies Coded Allergies: Acarides (Mites) (Verified Allergy, Unknown, 07/11/19) Dust (Verified Allergy, Unknown, 07/11/19) SMOKE (Verified Allergy, Unknown, 07/11/19) MERY COOPER MD July 25, 2019 12:11
--- NOTE | 2019-07-25 16:37 | ROOR ---
Patient Name: Rell Sumner Procedure Date: 07/23/2019 7:17 AM Date of : 1950 Admit Type: Outpatient Age: 69 Note Status: Finalized Attending MD: Swathi Berry MD Procedure: Bronchoscopy Indications: Chronic cough with abnormal CT, Abnormal CT scan of chest Providers: Swathi Berry MD (Doctor) Referring MD: 1. No Referring Physician 1. No Referring Physician, Admin. (Referring MD) Requesting Physician: Medicines: General Anesthesia, Cetacaine topical, Epinephrine 1 mg/10 mL topical 2 mL Complications: Moderate sized symptomatic pneumothorax Procedure: Pre-Anesthesia Assessment: - Prior to the procedure, a History and Physical was performed, and patient medications and allergies were reviewed. The patient's tolerance of previous anesthesia was also reviewed. The risks and benefits of the procedure and the sedation options and risks were discussed with the patient. All questions were answered, and informed consent was obtained. Prior Anticoagulants: The patient has taken Eliquis (apixaban), last dose was 3 days prior to procedure. ASA Grade Assessment: III - A patient with severe systemic disease. After reviewing the risks and benefits, the patient was deemed in satisfactory condition to undergo the procedure. The Bronchoscope was introduced through the mouth, via the endotracheal tube (the patient was intubated for the procedure) and advanced to the tracheobronchial tree of both lungs. The procedure was aborted due to procedural pneumothorax. Findings: Bilateral Lung Abnormalities: Notable, mucoid, tenacious, white, thick secretions were found throughout the tracheobronchial tree. They were not obstructing the airway. Mucosa with scattered pitting and webbing and some friability throughout the tracheobronchial tree. Nodular white/delgado submucosal noduels were found throughout the tracheobronchial tree. Transbronchial biopsies were performed in the lateral basal segment of the right lower lobe using forceps and sent for histopathology examination and Envisia testing. The procedure was guided by fluoroscopy. Transbronchial biopsy technique was selected because the sampling site was not visible endoscopically. Bronchoalveolar lavage was performed in the right lower lobe of the lung and sent for cell count, bacterial culture, and fungal & AFB analysis and cytology. The return was blood-tinged and cloudy. Transbronchial biopsies were performed in the lateral segment of the right middle lobe using forceps and sent for histopathology examination and Envisia testing. The procedure was guided by fluoroscopy. Transbronchial biopsy technique was selected because the sampling site was not visible endoscopically. Endobronchial biopsies were performed in the left upper lobe using forceps and sent for histopathology examination. Transbronchial biopsies were performed in the posterior segment of the right upper lobe using forceps and sent for histopathology examination. The procedure was guided by fluoroscopy. Transbronchial biopsy technique was selected because the sampling site was not visible endoscopically. One biopsy pass was performed before procedure was aborted as patient noted to have a small apical pneumothorax on fluoroscopy. Impression: - Chronic cough with abnormal CT - Abnormal CT scan of chest - Notable, mucoid, tenacious, white, thick secretions were found throughout the tracheobronchial tree. - Friable mucosa was found throughout the tracheobronchial tree. - Nodular mucosa was visualized throughout the tracheobronchial tree. - Transbronchial lung biopsies were performed. - An endobronchial biopsy was performed. - Bronchoalveolar lavage was performed. Recommendation: - Chest tube placement in OR for enlarging procedural pneumothorax as noted on STAT portable CXR. Please see separate chest tube insertion note for procedure details. Attending Participation: I personally performed the entire procedure. Swathi Berry MD 07/25/2019 4:37:10 PM Number of Addenda: 0 Note Initiated On: 07/23/2019 7:17 AM
== END 2019-07-25 12:41 | disposition home or self-care (01) ==
LOC: M SDC 06:26 → ENRESERV 11:45 → M PCU 12:48 → M SDC 07-25 12:41
PROVIDERS: ATTEND Internal Medicine Pulmonary Disease
DX: J95.811 Postprocedural pneumothorax (principal); J84.10 Pulmonary fibrosis, unspecified; J18.9 Pneumonia, unspecified organism; R91.8 Other nonspecific abnormal finding of lung field; I10 Essential (primary) hypertension; E78.49 Other hyperlipidemia; J45.909 Unspecified asthma, uncomplicated; G47.33 Obstructive sleep apnea (adult) (pediatric); Z79.899 Other long term (current) drug therapy; Z85.72 Personal history of non-Hodgkin lymphomas; N40.0 Benign prostatic hyperplasia without lower urinary tract symptoms; K57.90 Diverticulosis of intestine, part unspecified, without perforation or abscess without bleeding; I48.91 Unspecified atrial fibrillation; Z79.01 Long term (current) use of anticoagulants; Z79.51 Long term (current) use of inhaled steroids; Z79.52 Long term (current) use of systemic steroids
CPT/HCPCS: 31624; 31628; 31629; 31632; 32551; 36415; 71045; 71046; 76000; 80048; 82803; 85025; 87070; 87102; 87116; 87205; 87206; 88108; 88305; 88313; 89050; 94640; J0131; J1100; J2250; J2370; J2405; J3010